=== PATIENT | female | born 1950 ===

== ENCOUNTER 2019-04-14 14:17 | Emergency (ER) | payer OTHER ==
[~2019-04-14] VITALS: Ht 160 cm; Wt 79.5 kg
[2019-04-14] MEDS ORDERED: AMLO5TAB9 PO (14:31)
[2019-04-14 17:16] LABS: INFLUENZA TYPE A POSITIVE FOR TYPE A (NEGATIVE); INFLUENZA TYPE B NEGATIVE FOR TYPE B (NEGATIVE)
[2019-04-14 18:26] VITALS: BP 144/89
== END 2019-04-14 19:52 | disposition home or self-care (01) ==
LOC: EMS 14:21
DX: J10.1 Influenza due to other identified influenza virus with other respiratory manifestations (principal); E78.00 Pure hypercholesterolemia, unspecified
CPT/HCPCS: 87804